=== PATIENT | male | born 1955 | race Caucasian/White ===

== ENCOUNTER 2020-11-24 11:13 | Observation (INO) | payer MEDICARE, OTHER ==
[~2020-11-24] VITALS: Ht 182.9 cm; Wt 79.4 kg
[~2020-11-24 11:13] MED LIST: ATORVASTATIN CA20 MG PO; AUGMENTIN 250-250 MG GT; CLOPIDOGREL75 MG PO; COZAAR50 MG PO; ECOTRIN81 MG PO; ELIQUIS5 MG PO; GABAPENTIN300 MG PO; KEFLEX CAP 500500 MG PO; LANTUS100 UNIT/1 SQ; LEVEMIR FL100 UNIT/1 SQ; MEGACE 400400 MG/10 PO; MULTAQ400 MG PO; NORCO 7.5-3251 EACH PO; NORVASC10 MG PO; NOVOLIN R100 UNIT/1 INJ; OMEPRAZOLE20 MG PO; PHOSLO 667 MG667 MG PO; PRAVASTATIN SOD40 MG PO; PREVACID30 MG PO; REGLAN5 MG PO; RENA-VITE TABL0.8 MG PO; RENVELA800 MG PO; ROCALTROL CA0.25 MCG PO; TOPROL XL100 MG PO; VELPHORO500 MG PO; VIBRAMYCIN100 MG PO; VITAMIN D250000 UNIT PO; ZINC SULFATE220 M1 PO
[2020-11-24 11:55] LABS: HEMOGLOBIN 8.6 gm/dl (14.0-17.5); RED BLOOD COUNT 2.76 M/UL (4.20-5.50); WHITE BLOOD COUNT 9.9 K/UL (4.5-11.0)
[2020-11-24] MEDS ORDERED: ZINC-220220 MG PO (17:43)
[2020-11-25 04:31] LABS: HEMOGLOBIN 8.7 gm/dl (14.0-17.5); RED BLOOD COUNT 2.82 M/UL (4.20-5.50)
[2020-11-25 04:33] LABS: WHITE BLOOD COUNT 13.9 K/UL (4.5-11.0)
--- NOTE | 2020-11-27 17:37 | NUR ---
LAURA DALLAS D/C'Monserrat
== END 2020-11-27 17:43 | disposition home or self-care (01) ==
LOC: ER1 11:13 → CDU 16:40 → M/S 16:40
PROVIDERS: Family Medicine; Physician Assistant; ADMIT Internal Medicine
DX: I13.2 Hypertensive heart and chronic kidney disease with heart failure and with stage 5 chronic kidney disease, or end stage renal disease (principal); I50.22 Chronic systolic (congestive) heart failure; E11.22 Type 2 diabetes mellitus with diabetic chronic kidney disease; N18.6 End stage renal disease; D63.1 Anemia in chronic kidney disease; I48.0 Paroxysmal atrial fibrillation; I25.10 Atherosclerotic heart disease of native coronary artery without angina pectoris; I73.9 Peripheral vascular disease, unspecified; S32.018A Other fracture of first lumbar vertebra, initial encounter for closed fracture; E78.5 Hyperlipidemia, unspecified; R77.8 Other specified abnormalities of plasma proteins; F17.210 Nicotine dependence, cigarettes, uncomplicated; Z99.2 Dependence on renal dialysis; Z79.01 Long term (current) use of anticoagulants; Z79.4 Long term (current) use of insulin; Z79.899 Other long term (current) drug therapy; Z20.828 Contact with and (suspected) exposure to other viral communicable diseases
CPT/HCPCS: 36415; 36556; 36600; 51702; 71045; 72100; 80053; 81001; 82140; 82550; 82553; 82803; 82962; 83036; 83605; 83735; 83874; 84100; 84484; 85025; 85610; 85730; 87040; 87086; 90471; 93005; 96365; 96375; 96376; 99285; C1751; G0378; J1644; J2543; J3370; J7030; U0002

== ENCOUNTER 2021-02-22 21:48 | Emergency (ER) | payer MEDICARE, OTHER ==
[~2021-02-22 21:48] MED LIST changes: +ZINC-220220 MG PO
[2021-02-23 00:33] LABS: HEMOGLOBIN 10.1 gm/dl (14.0-17.5); RED BLOOD COUNT 3.22 M/UL (4.20-5.50); WHITE BLOOD COUNT 13.1 K/UL (4.5-11.0)
[2021-02-23] MEDS ORDERED: OMNICEF 300 MG300 MG PO (02:15)
[2021-02-23] MEDS ORDERED: DOXYCYCLINE HY100 MG PO (02:15)
== END 2021-02-23 04:12 | disposition home or self-care (01) ==
LOC: ER1 21:48
PROVIDERS: Emergency Medicine
DX: J18.9 Pneumonia, unspecified organism (principal); E11.22 Type 2 diabetes mellitus with diabetic chronic kidney disease; I25.10 Atherosclerotic heart disease of native coronary artery without angina pectoris; I50.9 Heart failure, unspecified; Z20.822 Contact with and (suspected) exposure to COVID-19; F17.210 Nicotine dependence, cigarettes, uncomplicated; Z79.899 Other long term (current) drug therapy; Z79.4 Long term (current) use of insulin
CPT/HCPCS: 0240U; 71045; 80053; 82550; 82553; 83735; 83874; 83880; 84100; 84484; 85025; 85610; 85730; 93005; 99285

== ENCOUNTER → 2021-03-10 | Outpatient (CLI) | payer MEDICARE, OTHER ==
[~2021-03-10] MED LIST changes: +DOXYCYCLINE HY100 MG PO; +OMNICEF 300 MG300 MG PO
== END ==
LOC: KOH-I 16:46
DX: R06.02 Shortness of breath (principal); I51.7 Cardiomegaly; J90 Pleural effusion, not elsewhere classified
CPT/HCPCS: 71045; 71046

== ENCOUNTER → 2021-04-02 | Outpatient (CLI) | payer MEDICARE, OTHER | LOC: RAD 13:58 | DX: I50.9 Heart failure, unspecified (principal); J90 Pleural effusion, not elsewhere classified | CPT/HCPCS: 71046 ==

== ENCOUNTER 2021-04-25 14:07 | Emergency (ER) | payer MEDICARE, OTHER ==
[~2021-04-25] VITALS: Ht 177.8 cm; Wt 72.6 kg
[2021-04-25 14:47] LABS: HEMOGLOBIN 9.8 gm/dl (14.0-17.5); RED BLOOD COUNT 3.1 M/UL (4.20-5.50); WHITE BLOOD COUNT 12.4 K/UL (4.5-11.0)
[2021-04-25 15:13] LABS: BUN/CREATININE RATIO 6 (0-10)
[2021-04-26 08:47] LABS: ACINETOBACTER BAUMANNII Not Detected (Negative); CANDIDA ALBICANS Not Detected (Negative); CANDIDA KRUSEI Not Detected (Negative); CANDIDA TROPICALIS Not Detected (Negative); ENTEROCOCCUS Not Detected (Negative); ESCHERICHIA COLI Not Detected (Negative); HAEMOPHILUS INFLUENZAE Not Detected (Negative); KLEBSIELLA OXYTOCA Not Detected (Negative); KLEBSIELLA PNEUMONIAE Not Detected (Negative); KPC-CARBAPENEM-RESISTANCE GENE Not Detected (Negative); PROTEUS Not Detected (Negative); PSEUDOMONAS AERUGINOSA Not Detected (Negative); SERRATIA MARCESANS Not Detected (Negative); STAPHYLOCOCCUS AUREUS Not Detected (Negative); STREP AGALACTIAE (GROUP B) Not Detected (Negative); STREP PYOGENES (GROUP A) Not Detected (Negative); STREPTOCOCCUS Not Detected (Negative); vanA/B (VANCOMYCIN RESIST GENE Not Detected (Negative)
[2021-04-26 10:05] LABS: STAPHYLOCOCCUS DETECTED (Negative); mecA (METHICILLIN RESIST GENE DETECTED (Negative)
== END 2021-04-25 16:25 | disposition short-term general hospital (02) ==
LOC: ER1 14:07
PROVIDERS: Emergency Medicine
DX: I61.9 Nontraumatic intracerebral hemorrhage, unspecified (principal); A41.9 Sepsis, unspecified organism; E11.9 Type 2 diabetes mellitus without complications; J18.9 Pneumonia, unspecified organism; N18.6 End stage renal disease; J90 Pleural effusion, not elsewhere classified; Z20.822 Contact with and (suspected) exposure to COVID-19; Z99.2 Dependence on renal dialysis
CPT/HCPCS: 36430; 36600; 70450; 71045; 80053; 82550; 82553; 82803; 83605; 83690; 83735; 83874; 83880; 84484; 85025; 85610; 85730; 86900; 86901; 87040; 87077; 87150; 87186; 93005; 96365; 96366; 96375; 99285; C9132; J0692; J2310; J2405; J3370; J7030; P9035; U0002